=== PATIENT | female | born 1965 | race Caucasian/White ===

== ENCOUNTER → 2020-02-13 | Day surgery (SDC) | payer OTHER ==
[~2020-02-13] MED LIST: ACETAMINOPHEN 1000 MG/100 ML 100 ML IV ONE; ACETAMINOPHEN/CODEINE 300MG - 30MG TAB ONE; DEXAMETHASONE SOD PHOS INJ 4 MG/ML VIAL ONE; FENTANYL CITRATE/PF 100MCG/2 ML INJ ONE; GLYCOPYRROLATE INJ 0.2 MG/ML VIAL ONE; LIDOCAINE 1% W/EPINEPHRINE 20 ML VIAL ONE; LIDOCAINE HCL (LTA) 4 ML SOLN ONE; LIDOCAINE HCL 2% JELLY 5 ML TUBE ONE; LIDOCAINE HCL 2% LOCAL INJ 5 ML SDV VIAL INJ ONE; MIDAZOLAM HCL 2 MG/2 ML VIAL ONE; NEOSTIGMINE 1 MG/ML 10ML VIAL ONE; OMEPRAZOLE40 MG PO; ONDANSETRON HCL INJ 2MG/ML 2ML 2 MG/ML VIAL ONE; PROPOFOL IV EMULSION 10 MG/ML 20 ML VIAL ONE; ROCURONIUM BROMIDE 10 MG/ML 5ML VIAL IV ONE; SEVOFLURANE INHAL SOLN 250 ML PEN BTL ONE; SIMVASTATIN20 MG PO
--- NOTE | 2020-02-13 03:18 | Pre Op History & Physical ---
CHIEF COMPLAINT: Right dominant nodule. HISTORY OF PRESENT ILLNESS: This 54-year-old female was known to have a nodule in the right thyroid for few years. The patient had previous needle aspiration, it was non malignant. The patient had a repeat ultrasound of the thyroid on January 22, which showed the patient has a dominant nodule on the right side and a biopsy was recommended. The patient also has multiple small nodules on the left, which are not suspicious. The patient has no dysphagia, odynophagia, or shortness of breath. The patient has no radiation to the head and neck area. There is no family history of thyroid problem. She has no hoarseness. The patient has no symptoms of thyroid problem. REVIEW OF SYSTEMS: System review showed no recent cardiovascular, respiratory, or GI problem. PAST MEDICAL HISTORY: She has history of rheumatoid arthritis. PAST SURGICAL HISTORY: She has previous hysterectomy and lumpectomy in her breast. ALLERGIES: SHE IS ALLERGIC TO PENICILLIN, WHICH GAVE HER RASH. MEDICATIONS: She is on vitamin and cholesterol medication. SOCIAL HISTORY: Nonsmoker and a social drinker. FAMILY HISTORY: Noncontributory. PHYSICAL EXAMINATION: VITAL SIGNS: The patient's vital signs were within normal limits. HEENT: Ear exam showed normal tympanic membrane bilaterally. Nasal exam showed hypertrophy of inferior turbinates. Nasal endoscopy showed mobile vocal folds bilaterally with no lesion in the hypopharynx. Oropharynx and oral cavity show no obvious abnormality. NECK: Show right thyroid fullness about 3 x 2 cm. No other lymph node was palpable. CHEST: Showed good air entry bilaterally. CARDIOVASCULAR: Showed S1, S2. No murmur noted. ASSESSMENT AND PLAN: Mrs. Weaver has right dominant thyroid nodule that has persisted over the past few years. She had previous needle aspiration, but that did not show any malignancy. However, the lesion remained suspicious. The suggested treatment is right thyroidectomy, possible total thyroidectomy, and other necessary procedure. Complication of procedure includes but not limited to bleeding, infection, hypothyroidism, hyperthyroidism, hypocalcemia, hypercalcemia, voice change, recurrent laryngeal nerve injury, trouble swallowing, dysphagia, perforation of the esophagus, pneumomediastinum, mediastinitis, airway compromise, persistent recurrence of the problem. The alternative will be continue observation, needle aspiration of the thyroid nodule, and thyroid suppression therapy. The patient has elected to undergo surgical procedure. MD EFRNY Lin/GABEL /[id number] cc: Dr. Epstein
[2020-02-13 06:42] LABS: BASOPHILS % 0.6 % (0.0-1.0); EOSINOPHILS # (AUTO) 0.1 (0.0-0.4); EOSINOPHILS % 2.8 % (0.0-6.0); HEMATOCRIT 40.1 % (34.2-44.1); HEMOGLOBIN 12.6 g/dL (12.0-16.0); LYMPHOCYTES # (AUTO) 1.1 (1.0-3.2); LYMPHOCYTES % 22.5 % (18.0-39.1); MEAN CORPUSCULAR HEMOGLOBIN 28.7 pg (28-32); MEAN CORPUSCULAR HGB CONC 31.4 g/dL (31-35); MEAN CORPUSCULAR VOLUME 91.3 fL (81-99); MONOCYTES # (AUTO) 0.4 (0.2-0.8); MONOCYTES % 7.3 % (4.4-11.3); NEUTROPHILS # (AUTO) 3.3 (2.1-6.9); NEUTROPHILS % 66.6 % (38.7-80.0); PLATELET COUNT 231 x10e3/uL (140-360); RED BLOOD COUNT 4.39 x10e6/uL (3.6-5.1); RED CELL DISTRIBUTION WIDTH 12.7 % (11.7-14.4)
[2020-02-13 06:55] LABS: INR 0.92; PARTIAL THROMBOPLASTIN TIME 29.1 seconds (23.8-35.5); PROTHROMBIN TIME 12.8 seconds (11.9-14.5)
[2020-02-13 07:12] LABS: ALANINE AMINOTRANSFERASE 20 IU/L (0-55); ALBUMIN 3.8 g/dL (3.5-5.0); ALBUMIN/GLOBULIN RATIO 1.2 (0.8-2.0); ALKALINE PHOSPHATASE 115 IU/L (40-150); ANION GAP 10.6 mmol/L (8-16); BLOOD UREA NITROGEN 12 mg/dL (7-26); BUN/CREATININE RATIO 17 (6-25); CALCIUM 9.5 mg/dL (8.4-10.2); CARBON DIOXIDE 26 mmol/L (22-29); CHLORIDE 108 mmol/L (98-107); EST GLOMERULAR FILTRATION RATE > 60 ML/MIN (60-); GLUCOSE 96 mg/dL (74-118); POTASSIUM 3.6 mmol/L (3.5-5.1); SODIUM 141 mmol/L (136-145)
--- NOTE | 2020-02-13 10:00 | Operative Report ---
DATE OF PROCEDURE: 02/13/2020 SURGEON: Errol Munoz MD CHIEF COMPLAINT: Right thyroid nodule. POSTOPERATIVE DIAGNOSIS: Right thyroid nodule. OPERATIVE PROCEDURE: Right thyroidectomy with appropriate closure. ANESTHESIA: Anesthesiology group. INDICATIONS: This 54-year-old female was noted to have a lesion in the right thyroid for a number of years. She had previous needle aspiration before and was nonmalignant. On followup, the nodule is still present on the right side. Repeat biopsy was suggested. The patient decided that right thyroidectomy, possible total thyroidectomy and other necessary procedure will be beneficial for her. The patient has no history of radiation to the head and neck area. She denies any dysphagia, odynophagia, or shortness of breath. She has no hoarseness. The patient obtained a cardiac clearance by Dr. Maico brower. DESCRIPTION OF PROCEDURE: The patient was taken to the operating room, put under general anesthesia, endotracheally intubated. An incision was marked out about two fingerbreadths from the sternal notch. Size of the incision was about 4 cm. The area was injected with 1% Xylocaine with 1:100,000 epinephrine for hemostasis. The area was prepped and draped in a sterile fashion. Dissection was carried down to subplatysmal plane. The superior and inferior flap were elevated. The strap muscle was identified and . The superior pole of the right thyroid was dissected from the surrounding soft tissue. The superior parathyroid gland was identified and not disturbed. The thyroid gland was rotated medially and inferiorly. The thyroid gland was delivered. The thyroid isthmus was transected using the Harmonic scalpel. The inferior pole of the thyroid was dissected from the surrounding soft tissue. The recurrent laryngeal nerve was identified and not disturbed. The thyroid gland was dissected from the Nieto ligament. The inferior parathyroid gland was identified and not disturbed. The thyroid gland was delivered and sent for frozen section. The frozen section returned as adenomatous nodule. No malignancy was noted. Closure of the area was undertaken. The area was irrigated with copious amount of normal saline. Any bleeding area was controlled using the bipolar cautery. The strap muscle was advanced in midline and closed with one mattress suture of 3-0 Vicryl suture in the inferior portion. The platysmal flap was elevated and advanced in the midline and closed on itself using 3-0 Vicryl suture in the interrupted fashion. The skin incision was closed using a 4-0 Monocryl suture in the interrupted fashion. A pressure dressing was applied. The patient tolerated the above procedure well with estimated blood lossabout 10-15 mL. She was given 20 mg of Decadron intraoperatively. The patient was able to be transferred to recovery room in stable condition. MD FERNY Lin/ANDREI /[id number]
[2020-02-13 10:30] VITALS: BP 149/86
== END | disposition home or self-care (01) ==
LOC: OR 05:24
PROVIDERS: ATTEND Otolaryngology Otolaryngology/Facial Plastic Surgery
DX: E04.1 Nontoxic single thyroid nodule (principal); E06.3 Autoimmune thyroiditis; M06.9 Rheumatoid arthritis, unspecified; Z88.0 Allergy status to penicillin; E78.5 Hyperlipidemia, unspecified; K21.9 Gastro-esophageal reflux disease without esophagitis; Z01.812 Encounter for preprocedural laboratory examination
CPT/HCPCS: 36415; 60210; 80053; 85025; 85610; 85730; 88305; 88331; J0131; J1100; J2001 ×2; J2250; J2405; J2704; J2710; J3010; 88307